=== PATIENT | female | born 1990 | race Caucasian/White ===

== ENCOUNTER 2021-02-10 10:03 | Emergency (ER) | payer BC ==
[2021-02-10 10:22] VITALS: BP 125/83; PULSE 78
--- NOTE | 2021-02-10 10:38 | EDM.PDOC ---
ED HPI GENERAL MEDICAL PROBLEM - General Chief Complaint: Back Pain or Injury Stated Complaint: BACK INJURY FROM FALL Time Seen by Provider: 02/10/21 10:30 - History of Present Illness INITIAL COMMENTS - FREE TEXT/NARRATIVE: 30-year-old female presents the emergency room with low back pain. This resulted from a fall. Earlier this morning the patient was walking and her sock caught the carpet she lost her balance and fell. She was carrying a box of knives. The patient does not have any pain radiating down her legs no loss of bowel or bladder control. She has localized back pain seems to be on the right side of her spine. It hurts fairly constantly change in position does aggravate it but as soon as she is done moving it returns to what it has been doing. Back Pain Score (Numeric/FACES): 4 - Related Data Allergies Allergy/AdvReac Type Severity Reaction Status Date / Time No Known Allergies Allergy Verified 02/09/18 14:26 Home Meds: Home Meds Orphenadrine [Norflex] 100 mg PO BID PRN #10 tab 02/10/21 [Rx] Past Medical History - Past Health History Medical/Surgical History: Denies Medical/Surgical History HEENT History: Reports: Other (See Below) Other HEENT History: Wears glasses Cardiovascular History: Reports: None Respiratory History: Reports: None Gastrointestinal History: Reports: None Other Gastrointestinal History: controlled with medication Genitourinary History: Reports: None [employer] History: Reports: , Other (See Below) Other [employer] History: pelvic pain, dysmenorrhea, menorrhagia, mittelschmerz, , ; Had a hysterectomy Musculoskeletal History: Reports: None Neurological History: Reports: None Psychiatric History: Reports: None Endocrine/Metabolic History: Reports: None Hematologic History: Reports: None Immunologic History: Reports: None Oncologic (Cancer) History: Reports: None Dermatologic History: Reports: None - Infectious Disease History Infectious Disease History: Reports: Chicken Pox - Past Surgical History Head Surgeries/Procedures: Reports: None HEENT Surgical History: Reports: Tonsillectomy, Other (See Below) Other HEENT Surgeries/Procedures: wisdom teeth removed 2007 Cardiovascular Surgical History: Reports: None Respiratory Surgical History: Reports: None GI Surgical History: Reports: None Female Surgical History: Reports: None Endocrine Surgical History: Reports: None Neurological Surgical History: Reports: None Musculoskeletal Surgical History: Reports: None Oncologic Surgical History: Reports: None Dermatological Surgical History: Reports: None Social & Family History - Family History Family Medical History: No Pertinent Family History - Tobacco Use Tobacco Use Status *Q: Current Every Day Tobacco User Years of Tobacco use: 5 Packs/Tins Daily: 1 - Caffeine Use Caffeine Use: Reports: Coffee, Energy Drinks, Soda, Tea Other Caffeine Use: one coffee in am and one soda during day. - Alcohol Use Days Per Week of Alcohol Use: 3 Number of Drinks Per Day: 4 Total Drinks Per Week: 12 - Recreational Drug Use Recreational Drug Use: No ED ROS GENERAL - Review of Systems Review Of Systems: See Below Constitutional: Reports: No Symptoms HEENT: Reports: No Symptoms Respiratory: Reports: No Symptoms Cardiovascular: Reports: No Symptoms GI/Abdominal: Reports: No Symptoms : Reports: No Symptoms Musculoskeletal: Reports: Back Pain Neurological: Reports: No Symptoms ED EXAM, GENERAL - Physical Exam Exam: See Below Exam Limited By: No Limitations General Appearance: Alert, No Apparent Distress Head: Atraumatic, Normocephalic Neck: Normal Inspection, Supple, Non-Tender Respiratory/Chest: No Respiratory Distress, Lungs Clear, Normal Breath Sounds Cardiovascular: Regular Rate, Rhythm, No Edema, No Murmur GI/Abdominal: Normal Bowel Sounds, Soft, Non-Tender Back Exam: Muscle Spasm (Seems to have muscle spasm in the right paraspinous muscles. And this is where tenderness is). No: CVA Tenderness (L), CVA Tenderness (R), Vertebral Tenderness Extremities: Other (Repositioning and straight legs raises of the right did not affect the pain straight leg raises with the left make the pain a little worse. No radicular symptoms) Course - Vital Signs Last Recorded V/S: Last Vital Signs Temp 36.8 C 02/10/21 10:21 Pulse 78 02/10/21 10:21 Resp 16 02/10/21 10:21 BP 125/83 02/10/21 10:21 Pulse Ox 100 02/10/21 10:21 - Orders/Labs/Meds Labs: Laboratory Tests 02/10/21 Range/Units 10:45 Urine Color Yellow (Yellow) Urine Appearance Clear (Clear) Urine pH 7.5 (5.0-8.0) Ur Specific [place] 1.020 (1.005-1.030) Urine Protein Negative (Negative) Urine Glucose (UA) Negative (Negative) Urine Ketones Negative (Negative) Urine Occult Blood Negative (Negative) Urine Nitrite Negative (Negative) Urine Bilirubin Negative (Negative) Urine Urobilinogen 0.2 (0.2-1.0) Ur Leukocyte Esterase Negative (Negative) - Re-Assessments/Exams Free Text/Narrative Re-Assessment/Exam: 02/10/21 12:56 Urinalysis is not abnormal, no signs of infection. X-ray examination of her lumbar spine is negative for any acute changes. Questionable gallstones seen within the right upper quadrant. Recommend ibuprofen we will give her a few Norflex to use as needed Departure - Departure Time of Disposition: 12:57 Disposition: Home, Self-Care 01 Clinical Impression: Low back strain - Discharge Information Referrals: Shine Reynolds MD [Primary Care Provider] - Forms: ED Department Discharge Additional Instructions: Return to the emergency room with any questions problems or worsening symptoms. For your back pain use ibuprofen as needed. Also for your back pain I sent a prescription for Norflex, this is a muscle relaxant take 1 twice daily for the next 2 days then 1 nightly thereafter as needed. Until you know how this affects your system do not drive or return to work within 12 hours of using this medication. [place] [facility] [place]. Follow-up with your regular healthcare provider for recheck towards the end of this next week. Discussed the x-ray findings that may suggest a possible stone within your gallbladder. Sepsis Event Note (ED) - Evaluation Sepsis Screening Result: No Definite Risk - Focused Exam Vital Signs: Vital Signs Temp Pulse Resp BP Pulse Ox 02/10/21 10:21 36.8 C 78 16 125/83 100
--- NOTE | 2021-02-10 11:27 | CR ---
Lumbar spine: AP, lateral and cone-down lateral view centered to the lumbosacral junction were obtained. Comparison: No prior lumbar spine study is available. Vertebral body heights are maintained. Disc spaces are also maintained. Pedicles are intact. Visualized transverse and spinous processes are intact. Sacroiliac joints are within normal limits. No discrete fracture is seen. Oval density is seen within the upper right abdomen. Difficult to exclude a gallstone. Impression: 1. Nothing acute is seen on 3-view lumbar spine study. 2. Questionable gallstone within the right upper abdomen. Diagnostic code #2
== END 2021-02-10 13:15 | disposition home or self-care (01) ==
LOC: JD.ED 10:03
DX: S39.012A Strain of muscle, fascia and tendon of lower back, initial encounter (principal); Z72.0 Tobacco use; W18.30XA Fall on same level, unspecified, initial encounter; Y93.01 Activity, walking, marching and hiking
CPT/HCPCS: 72100; 72100-26; 81003; 99283